=== PATIENT | male | born 1980 | race Caucasian/White ===

== ENCOUNTER 2016-12-16 09:47 | Emergency (ER) | payer OTHER ==
[2016-12-16 09:55] VITALS: BP 124/86
--- NOTE | 2016-12-16 11:10 | ED ---
HPI Diabetic - HPI Summary HPI Summary: 36 male presents to ED for dialysis. Patient has a tunnel catheter in his left sub clavian and unable to have outpatient therapy. Patient denies any other complaints at this time. Currently being treated with wound vac for cellulitis. - History Of Current Complaint Chief Complaint: EDGeneral Time Seen by Provider: 12/16/16 10:57 - Allergies/Home Medications Allergies/Adverse Reactions: Allergies Allergy/AdvReac Type Severity Reaction Status Date / Time No Known Allergies Allergy Verified 12/23/14 07:13 PMH/Surg Hx/FS Hx/Imm Hx GI History: Reports: Hx Gastroesophageal Reflux Disease Musculoskeletal History: Reports: Hx Arthritis - LEFT SHOULDER Sensory History: Denies: Hx Contacts or Glasses, Hx Hearing Aid Opthamlomology History: Denies: Hx Contacts or Glasses Neurological History: Reports: Other Neuro Impairments/Disorders - BIPOLAR? Psychiatric History: Reports: Hx Anxiety, Hx Depression - Surgical History Surgery Procedure, Year, and Place: LEFT KNEE SCOPING ELYSE Hx Anesthesia Reactions: No Infectious Disease History: No Infectious Disease History: Denies: Traveled Outside the [place] in Last 30 Days - Social History Alcohol Use: Occasionally Alcohol Amount: 5 beers/week Substance Use Type: Reports: Marijuana, Excessive Caffeine Substance Use Comment - Amount & Last Used: 6-8 pack mountain dew daily, marijuana few times per month Smoking Status (MU): Light Every Day Tobacco Smoker Type: Cigarettes Length of Time of Smoking/Using Tobacco: 11 years Have You Smoked in the Last Year: Yes Physical Exam Vital Signs On Initial Exam: Initial Vitals Temp Pulse Resp BP Pulse Ox 98.3 F 114 20 124/86 100 12/16/16 09:50 12/16/16 09:50 12/16/16 09:50 12/16/16 09:50 12/16/16 09:50 - [place] Coma Scale Coma Scale Total: 15 Diagnostics - Vital Signs Vital Signs Temp Pulse Resp BP Pulse Ox 12/16/16 09:55 98.5 F 121 20 124/86 100 12/16/16 09:50 98.3 F 114 20 124/86 100 - Laboratory Lab Statement: Any lab studies that have been ordered have been reviewed, and results considered in the medical decision making process.
--- NOTE | 2016-12-16 11:16 | ED ---
Complex/Multi-Sys Presentation - HPI Summary HPI Summary: 36 male presents to ED for dialysis. Patient has a tunnel catheter in his left sub clavian and unable to have outpatient therapy, therefore needing to be admitted to receive it in hospital. Patient denies any other complaints at this time. Currently being treated with wound vac for cellulitis. No meds, no alcohol. - History Of Current Complaint Chief Complaint: EDGeneral Time Seen by Provider: 12/16/16 10:57 Hx Obtained From: Patient Severity Currently: None - Allergies/Home Medications Allergies/Adverse Reactions: Allergies Allergy/AdvReac Type Severity Reaction Status Date / Time No Known Allergies Allergy Verified 12/23/14 07:13 PMH/Surg Hx/FS Hx/Imm Hx Endocrine/Hematology History: Reports: Other Endocrine/Hematological Disorders - CKD, renal failure Cardiovascular History: Reports: Hx Hypertension Respiratory History: Denies: Hx Asthma GI History: Reports: Hx Gastroesophageal Reflux Disease Musculoskeletal History: Reports: Hx Arthritis - LEFT SHOULDER Sensory History: Denies: Hx Contacts or Glasses, Hx Hearing Aid Opthamlomology History: Denies: Hx Contacts or Glasses Neurological History: Reports: Other Neuro Impairments/Disorders - BIPOLAR? Psychiatric History: Reports: Hx Anxiety, Hx Depression - Surgical History Surgery Procedure, Year, and Place: LEFT KNEE SCOPING ELYSE Hx Anesthesia Reactions: No Infectious Disease History: No Infectious Disease History: Denies: Traveled Outside the [place] in Last 30 Days - Social History Alcohol Use: Occasionally Alcohol Amount: 5 beers/week Substance Use Type: Reports: Marijuana, Excessive Caffeine Substance Use Comment - Amount & Last Used: 6-8 pack mountain dew daily, marijuana few times per month Smoking Status (MU): Light Every Day Tobacco Smoker Type: Cigarettes Length of Time of Smoking/Using Tobacco: 11 years Have You Smoked in the Last Year: Yes Review of Systems Constitutional: Negative Cardiovascular: Negative Respiratory: Negative Gastrointestinal: Negative Genitourinary: Negative Musculoskeletal: Negative Skin: Negative Neurological: Negative All Other Systems Reviewed And Are Negative: Yes Physical Exam Triage Information Reviewed: Yes Vital Signs On Initial Exam: Initial Vitals Temp Pulse Resp BP Pulse Ox 98.3 F 114 20 124/86 100 12/16/16 09:50 12/16/16 09:50 12/16/16 09:50 12/16/16 09:50 12/16/16 09:50 tachycardia noted. re-taken at discharge and in same range. patient did have dialysis today and is asymptomatic. Vital Signs Reviewed: Yes Appearance: Positive: Well-Appearing - sitting in wheelchair, pleasant, No Pain Distress, Well-Nourished Skin: Positive: Warm, Skin Color Reflects Adequate Perfusion, Dry Head/Face: Positive: Normal Head/Face Inspection Eyes: Positive: Normal, Conjunctiva Clear ENT: Positive: Normal ENT inspection, Hearing grossly normal, Pharynx normal, TMs normal Neck: Positive: Supple, Nontender, No Lymphadenopathy Respiratory/Lung Sounds: Positive: Clear to Auscultation, Breath Sounds Present Cardiovascular: Positive: Normal, RRR, Pulses are Symmetrical in both Upper and Lower Extremities Abdomen Description: Positive: Nontender, Soft Bowel Sounds: Positive: Present Musculoskeletal: Positive: Normal, Strength/ROM Intact Neurological: Positive: Normal, Sensory/Motor Intact, Alert, Oriented to Person Place, Time Psychiatric: Positive: Normal - [place] Coma Scale Best Eye Response: 4 - Spontaneous Best Motor Response: 6 - Obeys Commands Best Verbal Response: 5 - Oriented Coma Scale Total: 15 Diagnostics - Vital Signs Vital Signs Temp Pulse Resp BP Pulse Ox 12/16/16 09:55 98.5 F 121 20 124/86 100 12/16/16 09:50 98.3 F 114 20 124/86 100 - Laboratory Result Diagrams: 12/16/16 15:30 12/16/16 15:30 Lab Statement: Any lab studies that have been ordered have been reviewed, and results considered in the medical decision making process. Complex Multi-Symp Course/Dx Course Of Treatment: patient was medically cleared to go up to recieve dialysis. no complaints or further evaluation required. dialysis obtained. no complaints. aware of worsening signs and symptoms to watch out for. - Diagnoses Provider Diagnoses: Admission for dialysis Discharge - Discharge Plan Condition: Stable Disposition: HOME Referrals: Non Staff,Doctor [Primary Care Provider] - Additional Instructions: If you develop symptoms out of the ordinary please seek medical attention.
[2016-12-16 15:53] LABS: Hematocrit 24 % (42-52); Hemoglobin 8.1 g/dl (14.0-18.0); Mean Corpuscular HGB Conc 34 g/dl (31-36); Mean Corpuscular Hemoglobin 27 pg (27-31); Mean Corpuscular Volume 80 fL (80-94); Mean Platelet Volume 8 um3 (7.4-10.4); Red Blood Count 3.05 10^6/ul (4.0-5.4); Red Cell Distribution Width 18 % (10.5-15); White Blood Count 11.3 10^3/ul (3.5-10.8)
[2016-12-16 16:05] LABS: Albumin 2.9 g/dL (3.2-5.2); BUN/Creatinine Ratio 1.9 (8-20); Calcium 9.8 mg/dL (8.6-10.3); EGFR African American 20.5 (>60); Globulin 3.1 g/dL (2-4); One Over Creatinine 0.2 mg/dL (0.67-1.17); Total Bilirubin 0.5 mg/dL (0.2-1.0)
== END 2016-12-16 16:51 | disposition home or self-care (01) ==
LOC: EDSEX → ED 09:47 → MERGE 09:47 → ED 16:51
DX: N19 Unspecified kidney failure (principal); Z99.2 Dependence on renal dialysis; F17.210 Nicotine dependence, cigarettes, uncomplicated
CPT/HCPCS: 36415; 80053; 85027; 87040; 87340; 96372; 99282

== ENCOUNTER 2016-12-19 10:22 | Emergency (ER) | payer OTHER ==
[2016-12-19 11:47] LABS: Hematocrit 25 % (42-52); Hemoglobin 8.3 g/dl (14.0-18.0); Mean Corpuscular HGB Conc 33 g/dl (31-36); Mean Corpuscular Hemoglobin 27 pg (27-31); Mean Corpuscular Volume 81 fL (80-94); Mean Platelet Volume 8 um3 (7.4-10.4); Red Blood Count 3.12 10^6/ul (4.0-5.4); Red Cell Distribution Width 18 % (10.5-15); White Blood Count 9.3 10^3/ul (3.5-10.8)
[2016-12-19 11:48] LABS: Albumin 2.9 g/dL (3.2-5.2); BUN/Creatinine Ratio 1.7 (8-20); Calcium 11.5 mg/dL (8.6-10.3); EGFR African American 8.7 (>60); EGFR Non-African American 6.8 (>60); Globulin 3.1 g/dL (2-4); Potassium 2.8 mmol/L (3.5-5.0); Total Bilirubin 0.5 mg/dL (0.2-1.0)
--- NOTE | 2016-12-19 12:49 | ED ---
Kate Noyola Auryana, scribed for Sammy Key MD on 12/19/16 at 1059 . Medical Screening - HPI Summary HPI Summary: PATIENT IS HERE TO BE CLEARED FOR DIALYSIS. PULSES 115 - CONSULTED STAFF AT DIALYSIS - NORMAL BASELINE FOR PATIENT. HE DENIES CHEST PAIN, SOB, OR ANY OTHER COMPLAINTS. - History of Current Complaint Chief Complaint: EDGeneral Stated Complaint: dialysis Time Seen by Provider: 12/19/16 10:49 Associated Signs and Symptoms: Negative - patient denies any complaints PMH/Surg Hx/FS Hx/Imm Hx Endocrine/Hematology History: Reports: Other Endocrine/Hematological Disorders - CKD, renal failure Cardiovascular History: Reports: Hx Hypertension Respiratory History: Denies: Hx Asthma GI History: Reports: Hx Gastroesophageal Reflux Disease Musculoskeletal History: Reports: Hx Arthritis - LEFT SHOULDER Sensory History: Denies: Hx Contacts or Glasses, Hx Hearing Aid Opthamlomology History: Denies: Hx Contacts or Glasses Neurological History: Reports: Other Neuro Impairments/Disorders - BIPOLAR? Psychiatric History: Reports: Hx Anxiety, Hx Depression - Surgical History Surgery Procedure, Year, and Place: LEFT KNEE SCOPING ELYSE Hx Anesthesia Reactions: No Infectious Disease History: No Infectious Disease History: Denies: Traveled Outside the [place] in Last 30 Days - Family History Known Family History: Positive: None - Social History Occupation: Unemployed Lives: Alone Alcohol Use: Occasionally Alcohol Amount: 5 beers/week Substance Use Type: Reports: Marijuana, Excessive Caffeine Substance Use Comment - Amount & Last Used: 6-8 pack [place]w daily, marijuana few times per month Smoking Status (MU): Light Every Day Tobacco Smoker Type: Cigarettes Length of Time of Smoking/Using Tobacco: 11 years Have You Smoked in the Last Year: Yes Review of Systems Constitutional: Negative Eyes: Negative ENT: Negative Cardiovascular: Negative Respiratory: Negative Gastrointestinal: Negative Genitourinary: Negative Musculoskeletal: Negative Skin: Negative Neurological: Negative Psychological: Normal All Other Systems Reviewed And Are Negative: Yes Physical Exam - Summary Physical Exam Summary: VITAL SIGNS: Reviewed. PULSE 105 ON PHYSICAL EXAM - CONSULTED STAFF AT DIALYSIS - REPORTS PATIENT IS AT BASELINE. GENERAL: Patient is a well developed and nourished who is lying comfortable in the stretcher. Patient is not in any acute respiratory distress. HEAD AND FACE: No signs of trauma. No ecchymosis, hematomas or skull depressions. No sinus tenderness. EYES: PERRLA, EOMI x 2, No injected conjunctiva, no nystagmus. EARS: Hearing grossly intact. Ear canals and tympanic membranes are within normal limits. MOUTH: Oropharynx within normal limits. NECK: Supple, trachea is midline, no adenopathy, no JVD, no carotid bruit, no c- spine tenderness, neck with full ROM. CHEST: Symmetric, no tenderness at palpation LUNGS: Clear to auscultation bilaterally. No wheezing or crackles. CVS: Regular rate and rhythm, S1 and S2 present, no murmurs or gallops appreciated. ABDOMEN: Soft, non-tender. No signs of distention. No rebound no guarding, and no masses palpated. Bowel sounds are normal. EXTREMITIES: FROM in all major joints, no edema, no cyanosis or clubbing. NEURO: Alert and oriented x 3. No acute neurological deficits. Speech is normal and follows commands. SKIN: Dry and warm Triage Information Reviewed: Yes Vital Signs On Initial Exam: Initial Vitals Temp Pulse Resp BP Pulse Ox 97.8 F 116 16 130/89 100 12/19/16 10:25 12/19/16 10:25 12/19/16 10:25 12/19/16 10:25 12/19/16 10:25 Vital Signs Reviewed: Yes Diagnostics - Vital Signs Vital Signs Temp Pulse Resp BP Pulse Ox 12/19/16 10:26 97.9 F 115 20 130/89 100 12/19/16 10:25 97.8 F 116 16 130/89 100 - Laboratory Lab Statement: Any lab studies that have been ordered have been reviewed, and results considered in the medical decision making process. Course/Dx - Course Assessment/Plan: PATIENT DOES NOT HAVE ANY COMPLAINTS - VITAL SIGNS ARE STABLE EXCEPT INCREASED HEART RATE. HOWEVER, WE SPOKE WITH HIS DIALYSIS NURSE AND THIS IS HIS BASELINE. THEREFORE PATIENT WILL BE DIRECTED TO DIALYSIS. - Diagnoses Provider Diagnoses: Dialysis patient Discharge - Discharge Plan Condition: Stable Disposition: OTHER Discharge Disposition Comment: TO DIALYSIS The documentation as recorded by the Kate ramirez Auryana accurately reflects the service I personally performed and the decisions made by , Sammy Key MD.
[2016-12-19] MEDS ORDERED: Vancomycin(*) 1,000 MG in NS 0.9% 250 ML* 250 ML IVPB ONE (13:00)
[2016-12-19] MEDS ORDERED: Phytonadione INJ (Adult)* 10 MG in NS 0.9% 50 ML* 50 ML IV ONE (13:43)
[2016-12-19 16:54] VITALS: BP 107/80
== END 2016-12-19 15:55 | disposition home or self-care (01) ==
LOC: ED 10:22
DX: I12.0 Hypertensive chronic kidney disease with stage 5 chronic kidney disease or end stage renal disease (principal); N18.5 Chronic kidney disease, stage 5; F17.210 Nicotine dependence, cigarettes, uncomplicated; Z99.2 Dependence on renal dialysis; K21.9 Gastro-esophageal reflux disease without esophagitis
CPT/HCPCS: 36415; 80053; 85025; 85610; 99282; J3370; J3430

== ENCOUNTER → 2016-12-21 07:49 | Emergency (ER) | payer OTHER ==
[~2016-12-21 07:49] MED LIST: Epoetin Alfa* 10,000 UNITS/ML VIAL IV ONE; Vancomycin(*) 1,000 MG in NS 0.9% 250 ML* 250 ML IVPB ONE
[2016-12-21 07:57] VITALS: BP 139/97
[2016-12-21 09:57] LABS: Hematocrit 25 % (42-52); Hemoglobin 8.3 g/dl (14.0-18.0); Mean Corpuscular HGB Conc 33 g/dl (31-36); Mean Corpuscular Hemoglobin 27 pg (27-31); Mean Corpuscular Volume 81 fL (80-94); Mean Platelet Volume 9 um3 (7.4-10.4); Red Cell Distribution Width 18 % (10.5-15); White Blood Count 9.9 10^3/ul (3.5-10.8)
[2016-12-21 10:21] LABS: Albumin 2.9 g/dL (3.2-5.2); BUN/Creatinine Ratio 1.8 (8-20); Calcium 11.7 mg/dL (8.6-10.3); EGFR African American 9.9 (>60); EGFR Non-African American 7.7 (>60); One Over Creatinine 0.1 mg/dL (0.67-1.17); Potassium 2.9 mmol/L (3.5-5.0); Total Bilirubin 0.4 mg/dL (0.2-1.0); Total Protein 5.9 g/dL (6.4-8.9)
--- NOTE | 2016-12-21 21:01 | ED ---
Nile Noyola Billy, scribed for Sammy Key MD on 12/21/16 at 0826 . Medical Screening - HPI Summary HPI Summary: Patient is a 36 year-old male [place] [facility] [place]. He was last here at [facility] 2 days ago, and has since had no changes in his urine, either in terms of pain or quality. He reports no changes to his baseline activity, and he has been eating and drinking as usual. He states that he has been taking his regularly prescribed medication, although he will vomit after taking them--however he states that this happens with any pills that the takes, and is not new. He has a wound vac on the left leg that is cleanly bandaged; he has not noticed any new colors, drainage, or odorous smells. - History of Current Complaint Chief Complaint: EDGeneral Stated Complaint: dialysis Time Seen by Provider: 12/21/16 08:01 Associated Signs and Symptoms: Negative PMH/Surg Hx/FS Hx/Imm Hx Cardiovascular History: Reports: Hx Hypertension Respiratory History: Denies: Hx Asthma GI History: Reports: Hx Gastroesophageal Reflux Disease History: Reports: Hx Renal Disease - CKD, renal failure Musculoskeletal History: Reports: Hx Arthritis - LEFT SHOULDER Sensory History: Denies: Hx Contacts or Glasses, Hx Hearing Aid Opthamlomology History: Denies: Hx Contacts or Glasses Neurological History: Reports: Other Neuro Impairments/Disorders - BIPOLAR? Psychiatric History: Reports: Hx Anxiety, Hx Depression - Surgical History Surgery Procedure, Year, and Place: LEFT KNEE SCOPING ELYSE Hx Anesthesia Reactions: No Infectious Disease History: No Infectious Disease History: Denies: Traveled Outside the [place] in Last 30 Days - Family History Known Family History: Positive: Diabetes - Social History Alcohol Use: Occasionally Alcohol Amount: 5 beers/week Substance Use Type: Reports: Marijuana, Excessive Caffeine Substance Use Comment - Amount & Last Used: 6-8 pack mountain dew daily, marijuana few times per month Smoking Status (MU): Light Every Day Tobacco Smoker Type: Cigarettes Length of Time of Smoking/Using Tobacco: 11 years Have You Smoked in the Last Year: Yes Review of Systems Negative: Fever, Chills Negative: Chest Pain Negative: Shortness Of Breath Negative: Headache All Other Systems Reviewed And Are Negative: Yes Physical Exam - Summary Physical Exam Summary: Vital signs: reviewed General: Patient is comfortable sitting in a wheelchair. He is not in any respiratory distress. HEENT: within normal limits Lungs: CTA B/L CVS: S1 & S2 present. No murmurs appreciated. ABDOMEN: Soft, non-tender. No signs of distention. No rebound no guarding, and no masses palpated. Bowel sounds are normal. EXTREMITIES: FROM in all major joints, positive wound back in the left LE. NEURO: Alert and oriented x 3. No acute neurological deficits. Speech is normal and follows commands. SKIN: Dry and warm Triage Information Reviewed: Yes Vital Signs On Initial Exam: Initial Vitals Temp Pulse Resp BP Pulse Ox 98.9 F 122 20 139/97 98 12/21/16 07:55 12/21/16 07:55 12/21/16 07:55 12/21/16 07:55 12/21/16 07:55 Vital Signs Reviewed: Yes - [place] Coma Scale Coma Scale Total: 15 Diagnostics - Vital Signs Vital Signs Temp Pulse Resp BP Pulse Ox 12/21/16 07:56 98.9 F 119 20 139/97 98 12/21/16 07:55 98.9 F 122 20 139/97 98 - Laboratory Result Diagrams: 12/21/16 09:15 12/21/16 09:15 Lab Statement: Any lab studies that have been ordered have been reviewed, and results considered in the medical decision making process. Course/Dx - Course Assessment/Plan: Patient is a 36 year-old male coming to [facility] to be medically [place] for dialysis. He was last here at [facility] 2 days ago, and has since had no changes in his urine, either in terms of pain or quality. He reports no changes to his baseline activity, and he has been eating and drinking as usual. He states that he has been taking his regularly prescribed medication, although he will vomit after taking them--however he states that this happens with any pills that the takes, and is not new. He has a wound vac on the left leg that is cleanly bandaged; he has not noticed any new colors, drainage, or odorous smells. The patient has an increased heart rate, otherwise the vitals are WNL. The patient has chronic tachycardia and dialysis nurses are comfortable doing the dialysis. Dialysis was performed in the dialysis center. There were no complications. The patient was consulted by Dr. Whatley and he was sent back to the ED to be discharged home. He has no complaints at this time. Potassium is 2.9. BUN/creatinine is 1.8. The patient was given a potassium mantle. Dr. Whatley is comfortable discharging the patient with an increased HR. Apparently he has an increased HR chronically. He will be discharged home to follow up with Dr. Whatley. - Diagnoses Provider Diagnoses: dialysis Discharge - Discharge Plan Condition: Stable Disposition: HOME Patient Education Materials: End Stage Kidney Disease (ED) Referrals: [facility] PHYSICIAN REFERRAL [Outside] The documentation as recorded by the Nile ramirez Billy accurately reflects the service I personally performed and the decisions made by me, Sammy Key MD.
== END | disposition home or self-care (01) ==
LOC: ED 07:49
DX: N28.9 Disorder of kidney and ureter, unspecified (principal); Z99.2 Dependence on renal dialysis; F17.210 Nicotine dependence, cigarettes, uncomplicated
CPT/HCPCS: 36415; 80053; 85027; 85610; 99282; J0885; J3370